=== PATIENT | male | born 1950 | race Caucasian/White ===

== ENCOUNTER 2019-12-08 10:48 | Day surgery (SDC) | payer MEDICARE, BC ==
[~2019-12-08] VITALS: Ht 175.3 cm; Wt 74.8 kg
[2019-12-08] VITALS (7 sets, daily range): BP systolic 96–150; BP diastolic 56–74; PULSE 50–73; TEMP 97.7–98.3
[2019-12-08] MEDS ORDERED: PRINIVIL10 MG PO (11:19)
[2019-12-08] MEDS ORDERED: NORCO 325 MG-51 TAB PO (11:19)
--- NOTE | 2019-12-08 15:15 | NUR ---
The patient arrived back to [facility] from the recovery room at this time. The patient appears drowsy but arouses easily to his name. The patient has four bandaids to his abdomen that appear clean, dry and intact. The patient's post operative vital signs were started at this time. The patient's is at his bedside at this time. The patient agrees to try some ice chips at this time. Call light is within reach. Will continue to monitor the patient.
--- NOTE | 2019-12-08 15:30 | NUR ---
The patient appears to be tolerating the ice chips well. Vital signs appear stable. Will continue to monitor the patient.
--- NOTE | 2019-12-08 15:45 | NUR ---
The patient appears to be tolerating the ice chips well. The patient now asks to try some applesauce, wheat toast and ice water. Vital signs appear stable. The patient's remains at his bedside. Call light continue so to remain within reach. Will continue to monitor the patient.
--- NOTE | 2019-12-08 16:15 | NUR ---
The patient appears to be tolerating the food and drink well. The patient was given a PRN dose of Goodman 1 tab at this time. Vital signs appear stable. Call light remains within reach. Will continue to monitor the patient.
--- NOTE | 2019-12-08 16:35 | NUR ---
The patient ambulated to the bathroom with the stand by assistance of one nurse and appeared to tolerate the activity well. The patient voided without difficulty and voices a desire to be discharged home.
--- NOTE | 2019-12-08 16:45 | NUR ---
Discharge instructions were reviewed with the patient and his at this time. They both verbalized understanding and have no questions for the nurse at this time. The patient's IV to his right forearm was removed and a pressure dressing was applied to the site. The nurse instructed the patient to get dressed and notify the staff when he is ready to be escorted out.
--- NOTE | 2019-12-08 17:00 | NUR ---
The patient was escorted out via wheelchair to a private vehicle by [place] Patel. The patient's belongings and discharge paperwork were sent with him. The patient's is present to drive him home.
== END 2019-12-08 17:00 | disposition home or self-care (01) ==
LOC: SDCO 10:48
DX: K80.10 Calculus of gallbladder with chronic cholecystitis without obstruction (principal); I10 Essential (primary) hypertension; M19.90 Unspecified osteoarthritis, unspecified site; Z96.651 Presence of right artificial knee joint; Z88.8 Allergy status to other drugs, medicaments and biological substances; Z20.828 Contact with and (suspected) exposure to other viral communicable diseases; Z80.0 Family history of malignant neoplasm of digestive organs; Z80.41 Family history of malignant neoplasm of ovary
CPT/HCPCS: J1100; J1170; J1885; J1956; J2310; J2405; J2550; J2704; J2710; J7120